=== PATIENT | male | born 1970 | race Caucasian/White ===

== ENCOUNTER → 2018-06-02 11:28 | Outpatient (CLI) | payer SELFPAY ==
--- NOTE | 2018-06-02 | DI.RAD.S_ITS ---
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 COMPARISON: [facility], , CHEST 2 VIEW, 06/17/2017, 11:59. FINDINGS: Surgical changes and devices: None. Lungs and pleura: No pleural effusions or pneumothorax. Lungs are clear. Mediastinum: Mediastinal contours are normal. Heart size is normal. Bones and chest wall: No suspicious bony abnormalities. Soft tissues appear unremarkable. IMPRESSION: No metastatic disease found through the chest. Dictated by: Brandon Craft M.D. on 06/02/2018 at 12:40 Approved by: Brandon Craft M.D. on 06/02/2018 at 12:41
--- NOTE | 2018-06-02 13:03 | DI.CT.S_ITS ---
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 5 mm coronal and sagittal reformats were acquired. For radiation dose reduction, the following was used: automated exposure control, adjustment of mA and/or kV according to patient size. COMPARISON: [facility], US, TESTICLE IMAGING, 12/31/2016, 13:10. [facility], CT, IVP (ABD & PEL WWO CONTRAST), 12/31/2016, 12:43. [facility], CT, ABDOMEN/PELVIS WITH CONTRAST, 06/17/2017, 12:25. FINDINGS: Image quality: Excellent. ABDOMEN: Lung bases: Lung bases are clear. Heart size is normal. Solid organs: Liver is normal in size and enhancement. Gallbladder appears normal. Biliary system is non dilated. Pancreas enhances normally. Spleen is normal in size and enhancement. No adrenal nodules. Kidneys demonstrate normal size and enhancement, without hydronephrosis. Peritoneum and bowel: Bowel loops demonstrate normal wall thickness and caliber. No free fluid or air. Nodes and vessels: No retroperitoneal or mesenteric adenopathy by size criteria. Aorta and inferior vena cava are normal in size. Miscellaneous: No ventral hernias. PELVIS: Genitourinary: Bladder wall thickness is normal. Miscellaneous: No inguinal hernias or adenopathy. Normal appendix found in right lower quadrant. Sigmoid diverticulosis, without acute diverticulitis. Bones: No suspicious bony lesions. No vertebral body compression fractures. IMPRESSION: No evidence of metastatic disease. Reported prior left ORIF rectum and and excision of a small tumor-like nodule from the bladder margin subsequent to the 12/31/16 CT examination. No residual bladder mass is found. Sigmoid diverticulosis without acute diverticulitis. Dictated by: Brandon Craft M.D. on 06/02/2018 at 13:54 Approved by: Brandon Craft M.D. on 06/02/2018 at 13:58
== END ==
PROVIDERS: PCP Urology; Visit Provider Urology
DX: C67.9 Malignant neoplasm of bladder, unspecified (principal); C62.90 Malignant neoplasm of unspecified testis, unspecified whether descended or undescended
CPT/HCPCS: 71046; 74177; Q9967

== ENCOUNTER → 2019-12-03 11:10 | Outpatient (CLI) | payer SELFPAY ==
--- NOTE | 2019-12-03 11:54 | DI.CT.S_ITS ---
PROCEDURE: CT ABDOMEN PELVIS W CON INDICATIONS: Malignant neoplasm of bladder, unspecified TECHNIQUE: After the administration of oral and intravenous contrast, 5 mm thick sections acquired from the diaphragms to the symphysis. 5 mm thick coronal and sagittal reformats were performed. For radiation dose reduction, the following was used: automated exposure control, adjustment of mA and/or kV according to patient size. COMPARISON: [facility], CT, CT ABDOMEN PELVIS W CON, 06/02/2018, 12:45. FINDINGS: Image quality: Excellent. ABDOMEN: Lung bases: Lung bases are clear. Heart size is normal. Solid organs: Liver is normal in size and enhancement. Gallbladder unremarkable. Biliary system is non-dilated. Pancreas enhances normally. Spleen is normal in size and enhancement. No adrenal nodules. Kidneys are normal in size and enhancement, without hydronephrosis. Peritoneum and bowel: Stomach, small bowel, and colon loops are normal in caliber and wall thickness. No free fluid or air. Unchanged appearance of the sigmoid colonic diverticulosis. Nodes and vessels: No retroperitoneal or mesenteric adenopathy. Aorta and inferior vena cava are normal in caliber. Miscellaneous: No ventral hernias. PELVIS: Genitourinary: Possible slight anterior right bladder wall thickening on image 83/2, although the bladder is slightly less distended compared to the prior study. This measures approximately 7 mm. Miscellaneous: No inguinal hernias or adenopathy. Bones: No suspicious bony lesions. No vertebral body compression fractures. IMPRESSION: Minimal anterior right-sided bladder mural thickening, technically non-specific and could be related to slightly less distended appearance of the bladder compared to prior study. Nonetheless recommended clinical correlation and continued attention to this area on subsequent surveillance studies, or if clinically needed cystoscopy could be performed for further assessment. Elsewhere, no evidence of distant metastatic disease Incidental colonic diverticulosis. Dictated by: Candelario Capellan M.D. on 12/03/2019 at 13:21 Approved by: Candelario Capellan M.D. on 12/03/2019 at 13:39
== END ==
PROVIDERS: PCP Urology; Visit Provider Urology
DX: C67.9 Malignant neoplasm of bladder, unspecified (principal); K57.30 Diverticulosis of large intestine without perforation or abscess without bleeding
CPT/HCPCS: 74177; Q9967